=== PATIENT | male | born 1975 | race Asian ===

== ENCOUNTER 2017-03-10 10:08 | Emergency (ER) | payer OTHER ==
[~2017-03-10] VITALS: Ht 180.3 cm; Wt 133.0 kg
[2017-03-10] MEDS ORDERED: FEBU40TA PO (10:30)
[2017-03-10] MEDS ORDERED: KETOROLAC 30MG/ML VIAL IV ONE (10:45)
[2017-03-10] MEDS ORDERED: COLCHICINE 0.6MG TABLET PO ONE ×2 (10:45→11:45)
[2017-03-10 11:56] VITALS: BP 162/98
== END 2017-03-10 11:57 | disposition home or self-care (01) ==
LOC: ER 10:36
DX: M10.072 Idiopathic gout, left ankle and foot (principal); M10.071 Idiopathic gout, right ankle and foot
CPT/HCPCS: 73620; 82962; 96374; 99284; J1885; Z7610